=== PATIENT | female | born 1965 | race Caucasian/White ===

== ENCOUNTER 2020-06-09 10:46 | Outpatient (NON) | payer BC, SELFPAY ==
[2020-06-10 18:06] LABS: SARS-CoV-2 RNA PCR Negative
== END 2020-06-09 10:47 ==
PROVIDERS: PCP Family Medicine; Visit Provider Nurse Practitioner Family
DX: R68.83 Chills (without fever) (principal); Z20.828 Contact with and (suspected) exposure to other viral communicable diseases
CPT/HCPCS: 87635; C9803; U0003

== ENCOUNTER 2022-07-06 10:23 | Outpatient (CLI) | payer BC, SELFPAY ==
--- NOTE | ~2022-07-06 | DEXA_ITS ---
Bone Density Report Name: JOHAN SANTIAGO Age: 57 Sex: Female Ethnicity: White Date of : 1965 Indication: postmenopausal; screening for osteoporosis; height loss; prior fracture; asthma or emphysema; rheumatoid arthritis; Referring Provider: NIKKI, ANANTH Study: Bone densitometry was performed. Exam Date: July 06, 2022 Accession number: [id number] Bone Density: Region BMD T-score Z-score Classification AP Spine (L1-L4) 1.181 1.2 2.3 Normal Femoral Neck (Left) 0.898 0.4 1.5 Normal Total Hip (Left) 1.144 1.7 2.3 Normal Femoral Neck (Right) 0.877 0.3 1.3 Normal Total Hip (Right) 1.178 1.9 2.6 Normal Total Hip Mean 1.161 1.8 2.5 Normal World Health Organization criteria for BMD impression classify patients as: Normal (T-score at or above -1.0), Osteopenia (T-score between -1.0 and -2.5), or Osteoporosis (T-score at or below -2.5). 10-year Fracture Risk: FRAX not reported because: All T-scores for Spine Total, Hip Total, Femoral Neck at or above -1.0 Clinical Information Provided by Patient: Has had a low trauma fracture Has rheumatoid arthritis Has used the following medications: Vitamin D, Calcium Has the following medical conditions: Asthma or Emphysema Patient maximum height was 67 Menopause Age: 55 No regular weight bearing exercise Drinks caffeinated beverages Onset of menses at age 18 Number of children 0 Impression: The patient has normal bone mass. The patient has risk factors, including: previous fracture. Discussion: BONE DENSITY IS ABOVE THE MINIMUM DESIRABLE LEVEL AT ALL SKELETAL SITES TESTED. This patient?s bone mineral density is above the minimum desirable level (T-score -1.0 or better) at all sites measured. The patient should follow a healthful lifestyle (good nutrition with adequate calcium and vitamin D, and appropriate weight-bearing exercise). Follow-Up: Consider repeating this study in 5 years or sooner if there is some new clinical indication. Reported by: TRINH on 07/06/2022 10:41:00 AM. Reviewed, dictated and finalized at location ASharri STEIN
--- NOTE | ~2022-07-06 | MM_ITS ---
EXAMINATION: MM screening daniel BI w shoaib HISTORY: Screening mammogram TECHNIQUE: Craniocaudal and mediolateral oblique 3-D tomosynthesis images were obtained and synthetic 2-D images were generated. CAD analysis was submitted and interpreted. COMPARISON: 03/21/2019 bilateral screening mammogram 03/08/2016 bilateral diagnostic mammogram and limited right breast ultrasound 11/14/2012 screening mammogram BREAST PARENCHYMAL COMPOSITION: There are scattered areas of fibroglandular density. FINDINGS: Stable mild fibroglandular asymmetry. There is no evidence of suspicious mass, calcificatio n, or architectural distortion to suggest malignancy in either breast. There has been no suspicious i nterval change. IMPRESSION: 1. No mammographic evidence of malignancy. 2. Recommend routine screening mammography in one year. BI-RADS Category 1: Negative Reviewed, dictated and finalized at location A. 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
== END 2022-07-06 10:24 ==
LOC: MICIMG 10:24
PROVIDERS: PCP Family Medicine; Visit Provider Nurse Practitioner
DX: Z12.31 Encounter for screening mammogram for malignant neoplasm of breast (principal); Z78.0 Asymptomatic menopausal state
CPT/HCPCS: 77063; 77067; 77080

== ENCOUNTER 2022-08-18 16:12 | Outpatient (CLI) | payer BC, SELFPAY ==
--- NOTE | ~2022-08-18 | MR_ITS ---
EXAMINATION: MR knee LT wo con DATE: 08/18/2022 16:50 INDICATION: Left knee mass. TECHNIQUE: Magnetic resonance imaging (MRI) of the left knee was performed without intravenous contra st. Sequences included axial PD-weighted FS FSE, coronal PD-weighted FSE and PD-weighted FS FSE, sagi ttal PD-weighted FSE, and sagittal T2-weighted FS FSE. COMPARISON: Left knee radiographs 11/19/2020 FINDINGS: Medial compartment: Medial meniscus is normal. There is shallow partial-thickness cartilage loss of tibial condyle and fe moral condyle. Lateral compartment: There is an upper surface horizontal tear of anterior horn of lateral meniscus. There is partial-thic kness cartilage loss of tibial condyle, deep posteriorly. There is shallow partial-thickness cartilag e loss of femoral condyle. Osteophytes are noted. Patellofemoral compartment: There is full-thickness cartilage loss of patellar medial facet, median ridge, and lateral facet with cortical remodeling. There is full-thickness cartilage loss of trochlea with cortical remodeling and mild subchondral edema-like marrow signal intensity. Osteophytes are noted. Ligaments and tendons: Anterior cruciate ligament is enlarged with increased signal intensity, likely mucoid degeneration. P osterior cruciate ligament is normal. There are changes of prior sprains of medial collateral ligamen t and fibular collateral ligament characterized by increased signal intensity proximately. There is m ild patellar tendinopathy. Fluid: There is a small knee joint effusion. There is a multiloculated cyst medial and posteromedial to the knee and deep to gracilis and sartorius tendons measuring 8.0 cm x 5.6 cm transverse by greater than 13.0 cm craniocaudal. There is trace fluid in a Box's cyst. IMPRESSION: 1. Severe chondrosis of patellofemoral compartment, moderate chondrosis of lateral compartment, and m ild chondrosis of medial compartment. 2. Tear of lateral meniscus. 3. Small knee joint effusion. 4. 8.0 x 5.6 x 13.0 cm multiloculated cyst medial and posteromedial to the knee, consistent with pes anserinus bursitis. Reviewed, dictated and finalized at location A. 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 Severe chondrosis of patellofemoral compartment, moderate chondrosis of late ral compartment, and mild chondrosis of medial compartment. 2. Tear of lateral meniscus. 3. Small knee joint effusion. 4. 8.0 x 5.6 x 13.0 cm multiloculated cyst medial and posteromedial to the knee , consistent with pes anserinus bursitis.
== END 2022-08-18 16:13 | disposition home or self-care (01) ==
PROVIDERS: PCP Family Medicine; Visit Provider Orthopaedic Surgery
DX: S83.282A Other tear of lateral meniscus, current injury, left knee, initial encounter (principal); X58.XXXA Exposure to other specified factors, initial encounter
CPT/HCPCS: 73721

== ENCOUNTER 2022-08-30 10:41 | Outpatient (CLI) | payer BC, SELFPAY ==
--- NOTE | ~2022-08-30 | MR_ITS ---
EXAMINATION: MR knee LT wo/w con DATE: 08/30/2022 11:47 INDICATION: Localized swelling, mass or lump at the left knee. TECHNIQUE: Magnetic resonance imaging (MRI) of the left knee and distal thigh was performed without i ntravenous contrast. Sequences included axial, sagittal and coronal T1-weighted FSE and fluid sensit angeli FSE STIR, axial T1-weighted FS FSE and axial, sagittal and coronal T1-weighted FS FSE. COMPARISON: MRI dated 08/18/2022 FINDINGS: Small to moderate-sized left knee joint effusion at the suprapatellar pouch with surrounding uniform thin smooth enhancing synovitis. Large multiloculated fluid collection with uniform thin smooth enhan cing synovitis at the periphery as well as along a few thin internal septations. The main component o f the collection measures 10.1 x 6.9 x 4.5 cm and underlies the sartorius and gracilis muscles and te ndons consistent with pes anserine bursitis. There is a long thin loculation arising posteriorly from the larger fluid collection which extends an additional 9.2 cm craniocaudally and measures 1.4 x 1.2 cm maximal transaxial dimensions along the posterior margin of the distal gracilis muscle. No more n odular enhancing soft tissue component to suggest neoplasm. There is a minimal amount of nonloculated edema extending caudally along the superficial fascia at the medial aspect of the proximal calf. No evident reactive edema immediately surrounding the fluid collection. There is also very small Box's cyst. The visualized portions of the tendons and musculature in the distal thigh and proximal calf a re otherwise unremarkable. No fracture or pathologic marrow replacing process. Again seen is severe osteoarthritis at the patell ofemoral compartment with regions of high-grade chondromalacia at the patella and trochlea, the rim w ith mild subarticular edema-like signal change and the latter with contour suggestion of some early r emodeling. Previous noted tear of the anterior margin of the lateral meniscus along with the describe d chondromalacia in the medial lateral compartments is not clearly appreciated on the current study l ikely due to the significantly larger field of view in the current study. Again seen is likely mucoid degeneration of the anterior cruciate ligament which appears thickened with mild increased signal wi th similar stalk appearance extending along the top intact appearing ligament fibers which maintain a normal course relative Blumensaat line. IMPRESSION: 1. Slight decrease in size of a now 10.1 x 6.9 x 4.5 cm multiloculated fluid collection at the medial aspect of the locations most consistent with pes anserinus bursitis. No more nodular enhancing soft tissue component to suggest neoplasm. 2. Severe patellofemoral osteoarthritis with small to moderate-sized left knee joint effusion. Reviewed, dictated and finalized at location A. R BISCUIT IMPRESSION: 1. Slight decrease in size of a now 10.1 x 6.9 x 4.5 cm multiloculated fluid co llection at the medial aspect of the locations most consistent with pes anserin us bursitis. No more nodular enhancing soft tissue component to suggest neoplas m. 2. Severe patellofemoral osteoarthritis with small to moderate-sized left knee joint effusion.
== END 2022-08-30 10:42 ==
PROVIDERS: PCP Family Medicine; Visit Provider Orthopaedic Surgery
DX: M79.89 Other specified soft tissue disorders (principal); M17.12 Unilateral primary osteoarthritis, left knee
CPT/HCPCS: 73723; A9577

== ENCOUNTER 2024-04-22 10:42 | Emergency (ER) | payer BC, SELFPAY ==
--- NOTE | 2024-04-22 10:46 | ED_ITS ---
HPI - Extremity Injury (Upper) General Chief Complaint: Extremity Problem,Nontraumatic Stated Complaint: left arm painful when lifting up Time Seen by Provider: 04/22/24 10:44 Source: patient Mode of arrival: ambulatory Limitations: no limitations History of Present Illness HPI narrative: Patient is a 58-year-old female who presents with left shoulder pain when lifting arm up. Does admit to some numbness and tingling down the arm. Reports pain is constant. Has had surgery on that shoulder. Denies any injury but does state she was lifting heavy boxes prior to pain starting. Related Data Allergies Allergy/AdvReac Type Severity Reaction Status Date / Time Penicillins Allergy Unknown Hives Verified 04/22/24 11:05 shellfish derived Allergy Unknown HIVES Verified 04/22/24 11:05 Review of Systems Review of Systems: All systems reviewed & are unremarkable except as noted in HPI and below Constitutional: Constitutional: Denies body ache(s), Denies chills, Denies fatigue, Denies fever(s), Denies headache(s), Denies malaise and Denies weakness Eyes: Eyes: Denies blurry vision, Denies irritation and Denies loss of vision ENT: Denies otalgia, Denies headache(s), Denies nasal discharge, Denies sinus pain and Denies sore throat Cardiovascular: Cardiovascular: Denies chest pain, Denies irregular heart rhythm and Denies dyspnea Respiratory: Respiratory: Denies dyspnea Gastrointestinal: Gastrointestinal: Denies abdominal pain, Denies melena, Denies hematochezia, Denies diarrhea, Denies nausea and Denies vomiting Musculoskeletal: Musculoskeletal: Denies back pain, Denies myalgias and Reports arthralgias Integumentary/Breasts: Skin/Breast: Denies pruritus and Denies rash Neurologic: Denies headache(s), Denies loss of vision and Denies weakness Psychiatric: Psychiatric: Reports no additional psychiatric complaints Endocrine: Endocrine: Denies fatigue PMFSH Past Medical History Medical History EZ positive Arthritis of left knee Asthma BMI 29.0-29.9,adult BMI 30.0-30.9,adult Cardiac murmur, unspecified Chiari malformation type I Fibromyalgia Generalized osteoarthritis of multiple sites History of arthritis Surgical History Surgical History History of arthroscopy of left knee History of knee surgery Right TKA 06/11 History of surgery on arm Dr. Barnes Family History Family History Mother Asthma Family history of heart disease in male family member before age 55 Hypertension Family history of type 2 diabetes mellitus Diabetes mellitus History of arthritis History of blood clots Father Hypertension Family history of type 2 diabetes mellitus History of arthritis Grandparent Heart disease Cancer Social History Social History Smoking status: Former smoker Tobacco type: cigarettes Second hand tobacco smoke exposure: No Alcohol intake: current Drinks per week: 1 Alcohol use details: Occasional Substance use: never Current Housing: Decline to Answer Concerned About Future Housing: Decline to Answer Difficulty Paying Gas/Electric Bills: Decline to Answer Difficulty Paying for Meds: Decline to Answer Currently Unemployed: Decline to Answer Education: Decline to Answer Difficulty w/ Childcare or Family Care: Decline to Answer Living arrangements: with family Additional living arrangements comments: Occupation/Education: occupation 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 There is no relevant family history pertinent to the presenting complaint. Exam Const: General: cooperative, healthy appearing, comfortable, no acute distress and well nourished Nutritional Appearance: well nourished Orientation/consciousness: patient oriented x3 Limitations: no limitations HENMT: Head: normal to inspection, normocephalic and atraumatic Ears: hearing grossly normal bilaterally and external ears normal Face/Nose/Sinus: Normal external nose present, normal facial exam and face symmetric Face and sinus: normal facial exam and face symmetric Mouth: Yes lip normal Eyes: General: appearance normal, both eyes and all related structures Alignment and Position: alignment normal and position normal Periorbital: periorbital findings normal Eyelids: eyelids normal Pupils: Equal, round and reactive pupils present EOM: EOMs intact bilaterally Neck: Neck: normal visual inspection, full ROM and supple Chest: Chest palpation & inspection: normal inspection of the chest Resp: Effort & Inspection: normal respiratory effort and able to speak in complete sentences Auscultation: clear to auscultation bilaterally Cardio: Rate: regular rate Rhythm: regular rhythm Heart sounds: S1 normal heart sound present and S2 normal heart sound present GI: Inspection: normal to inspection Skin: General skin exam: normal color and no rashes or lesions noted Neuro: General: patient oriented x3 and moves all extremities Cranial nerves: Yes Equal, round and reactive pupils present Speech: normal speech Gait exam (Neuro): Normal gait present Extrem: General: normal to inspection, full ROM and no edema Left upper extremity: shoulder/upper arm inspection abnormal, tenderness of the proximal humerus and of the scapula, axillary nerve sensory function normal and abnormal ROM pain with active ROM in ABduction; no swelling, no ecchymosis, no deformity and no unsual warmth and elbow/forearm normal to inspection, normal ROM and distal pulses intact; no tenderness Psych: Appearance: grossly normal and well kempt Mental Status: mental status grossly normal Speech and movement: Normal speech and movement present Affect: normal affect Attitude: cooperative Thought process: Normal thought process present Course Course Emergency Course: Patient is aware of diagnosis, understands and agrees to treatment plan. Anticipatory guidance given. Patient agrees to follow-up as directed and is aware of reasons to seek care at the emergency department. Portions of this record may have been created with voice recognition software Level of Care: Express Care Visit Vital Signs Vital signs: Reviewed MDM - Extremity Injury (Upper) MDM Narrative Medical decision making narrative: Exam findings show no acute concerns or changes; patient is non-toxic appearing and is in no distress.? Patient is appropriate for outpatient treatment and follow-up. Discharge instructions reviewed with patient, as well as provided in writing per nursing staff. The instructions also include specific and strict return/GO TO THE ER as well as f/u information. All questions have been answered, and the patient deny any further questions with discharge and discharge plan. Differential Diagnosis Differential diagnosis: Likely dislocation of shoulder and other (Shoulder sprain, muscle strain, cervical radiculopathy) Medical Records Attestation: I reviewed the patient's medical records. Discharge Plan Discharge Clinical Impression: Left shoulder strain Qualifiers: Encounter type: initial encounter Qualified Code(s): S46.912A - Strain of unspecified muscle, fascia and tendon at shoulder and upper arm level, left arm, initial encounter Patient Disposition: Home, Self-Care Condition: Stable Instructions: Shoulder Sprain (ED) Additional Instructions: Take steroids in the morning with food. Use muscle relaxers as needed. They may make you sleepy. Use lidocaine patches 12 hours on and 12 hours off. Minimize activities that aggravate the condition The RICE protocol. Follow the RICE protocol as soon as possible after your injury:. Ice should be immediately applied to keep the swelling down. It can be used for 20 to 30 minutes, three or four times daily. Do not apply ice directly to your skin. Medication: Nonsteroidal anti-inflammatory drugs (NSAIDs) such as ibuprofen and naproxen can help control pain and swelling. Because they improve function by both reducing swelling and controlling pain, they are a better option for mild sprains than narcotic pain medicines. Please schedule a follow-up visit with your personal physician for further evaluation and treatment within 1week OR If your symptoms persist, change or worsen significantly before you can contact your personal physician then please, without delay, go to the emergency department for further evaluation. Prescriptions: New prednisone 20 mg tablet 40 mg PO DAILY 5 Days Qty: 10 0RF baclofen 10 mg tablet 10 mg PO TID 5 Days Qty: 15 0RF lidocaine 5 % adhesive patch,medicated 1 patch topical DAILY Qty: 15 0RF Rx Instructions: leave on most painful area for up to 12 hrs No Action duloxetine 60 mg capsule,delayed release(DR/EC) 60 mg PO BID Qty: 180 1RF montelukast [Singulair] 10 mg tablet 10 mg PO DAILY Qty: 90 3RF losartan-hydrochlorothiazide 100-12.5 mg tablet See Rx Instructions .ROUTE .COMPLEX Qty: 90 1RF Dose Instruction: TAKE 1 TABLET BY MOUTH DAILY Rx Instructions: TAKE 1 TABLET BY MOUTH DAILY omeprazole 40 mg capsule,delayed release(DR/EC) 40 mg PO DAILY Qty: 90 1RF albuterol sulfate 90 mcg/actuation HFA aerosol inhaler 1 inh INHALATION QID PRN (Reason: Shortness Of Breath) Qty: 8.5 2RF Follow-up/Referrals: Alexey Mar MD [Primary Care Provider] - 3 Days Stand Alone Forms: Work/School Release IP Time of Disposition: 11:40
[2024-04-22 10:55] VITALS: BP 117/85; PULSE 70; RESP 16; TEMP 36.6; O2SAT 100
== END 2024-04-22 11:45 | disposition home or self-care (01) ==
PROVIDERS: Emergency Provider Nurse Practitioner Family; PCP Family Medicine
DX: S46.912A Strain of unspecified muscle, fascia and tendon at shoulder and upper arm level, left arm, initial encounter (principal); X58.XXXA Exposure to other specified factors, initial encounter; R01.1 Cardiac murmur, unspecified; M79.7 Fibromyalgia; M15.9 Polyosteoarthritis, unspecified; G93.5 Compression of brain
CPT/HCPCS: 99213; G0463

== ENCOUNTER 2024-04-30 09:07 | Outpatient (CLI) | payer BC, SELFPAY ==
--- NOTE | ~2024-04-30 | XR_ITS ---
Left Shoulder Technique: AP and scapular Y views were obtained. Clinical History: Pain Findings: No acute fracture or dislocation is seen. Humeral intramedullary alfred partially imaged. Osse ous alignment is anatomic. The glenohumeral joint is preserved. There is idov-xn-rnsjrftm AC joint de generative change. Soft tissues are unremarkable. Impression: Tstf-qr-mglmzhpg AC joint degenerative change. Humeral intramedullary alfred partially imaged. Reviewed, dictated and finalized at location M. ATOR Impression: Qtyq-qg-cwfydkhl AC joint degenerative change. Humeral intramedullary alfred partially imaged.
== END 2024-04-30 09:08 | disposition home or self-care (01) ==
LOC: MICIMG 09:08
PROVIDERS: PCP Family Medicine; Visit Provider Nurse Practitioner Adult Health
DX: R29.898 Other symptoms and signs involving the musculoskeletal system (principal); M19.012 Primary osteoarthritis, left shoulder
CPT/HCPCS: 73030

== ENCOUNTER 2024-10-28 09:47 | Outpatient (CLI) | payer OTHER, SELFPAY ==
--- NOTE | 2024-10-28 | ECG_ITS ---
Test Date: 2024-10-28 10:15:56 Measurements Intervals [place] Rate: 74 P: 36 SD: 150 QRS: -47 QRSD: 101 T: 51 QT: 413 QTc: 460 Interpretive Statements SINUS RHYTHM POSSIBLE LEFT ATRIAL ENLARGEMENT [-0.1mV P-WAVE IN V1/V2] INFERIOR MYOCARDIAL INFARCTION , OF INDETERMINATE AGE [40+ ms Q WAVE AND/OR ST/T ABNORMALITY IN II/aVF] ANTEROLATERAL MYOCARDIAL INFARCTION , OF INDETERMINATE AGE [40+ ms Q WAVE IN I/aVL/V3-V6] ABNORMAL ECG No previous ECG available for comparison Electronically Signed On 10-28-2024 15:42:24 CDT by Christian Barajas M.D.
--- OUTSIDE RECORDS SUMMARY | 2024-10-28 10:36 | XMS_ITS | Encounter Summary ---
Author Organization [facility] Address [address] [place] [address] Care Team Providers Care Coremaker Experimental Name Role Phone Darrion Zavala MD Primary Care Provider [phone] Alexey Mar MD Primary Care Provider [phone] Encounter Details Date Type Department Care Team (Late st Contact Info) Description 11/24/2021 Lab Requisition [facility] [address] [place] [address] Foreign Abel MD [address] [place] [address] Social History Tobacco Use Types Packs/Day Years Used Date Smoking Tobacco: Never Assessed Comments Unknown Sex and Gender Information Value Date Recorded Sex Assigned at Not on file Legal Sex Female 11:29 AM CDT Gender Identity Not on file Sexual Orientation Not on file documented as of this encounter Plan of Treatment Not on file documented as of this encounter Procedures Procedure Name Priority Date/Time Associated Diagnosis Comments DERMATOPATHOLOGY Routine 11/23/2021 12:0 0 AM CDT documented in this encounter Results * DERMATOPATHOLOGY (11/23/2021 12:00 AM CDT) Case Report Dermatopathology Report Case: [id number] Authorizing Provider: Foreign Abel MD Collected: 11/23/2021 12:00 AM Ordering Location: [facility] Received: 11/24/2021 01:50 PM Pathologist: Monserrat Mendez MD Specimen: Skin, left med ankle 2 5:40 PM CDT DERMATOPATHOLOGY LABORATORY Addendum 1 This lesion is not present at the sampled margin of the specimen. 2 5:40 PM CDT DERMATOPATHOLOGY LABORATORY Addendum electronically signed by Monserrat Mendez MD on 11/30/2021 at 5:40 PM Final Diagnosis Specimen A. 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 The specimen consists of a shave biopsy measuring [id number] mm. Jar 0. 2 5:40 PM CDT DERMATOPATHOLOGY LABORATORY Microscopic Description Specimen A. SKIN, left med ankle: The epidermis shows parakeratosis, full thickness disorderly maturation of keratinocytes, mitoses at different levels, and dyskeratotic cells. 2 5:40 PM CDT DERMATOPATHOLOGY LABORATORY Disclaimer An external and internal positive and negative controls are appropriate for the histochemical, immunohistochemical and immunofluorescence stain(s) in this case (if any), except where stated explicitly. The performance characteristics of the stain(s) cited in this report were developed and its performance characteristic determined by the Dermatopathology Laboratory at [facility], directed by Dr. Tanja Estrada. These tests need not be, and therefore are not, approved by the [place] Food and Drug Administration. The tests are used for clinical purposes. Billing Codes Specimen Charges Stain Charges 41554 1 2 5:40 PM CDT DERMATOPATHOLOGY LABORATORY Embedded Images 2 5:40 PM CDT DERMATOPATHOLOGY LABORATORY Pathology/Cytolog y TISSUE SPECIMEN FROM SKIN / Unknown 11/23/2021 11/24/2021 1:50 PM CDT us Foreign Abel MD LAB - PATHOLOGY/CYTOLOGY ORD ERABLES Edited Result - Final DERMATOPATHOLOGY LABORATORY [facility] - Department of Dermatology [facility] Medicine [address] [place] [address], [address] [place] [address], [facility] [phone] documented in this encounter Visit Diagnoses Not on filedocumented in this encounter Care Teams Coremaker Experimental Relationship Specialty Start Date End Date Darrion Zavala MD [address] [place] [id number] PCP - General 12/06/17 09/20/22 Alexey Mar MD [address] [place] [address] PCP - General 09/21/22 documented as of this encounter
--- OUTSIDE RECORDS SUMMARY | 2024-10-28 10:36 | XMS_ITS | Clinical Summary ---
Author Organization [facility] Address [address] [place] [address] Care Team Providers Care Coppersmith Helper Name Role Phone Unavailable Primary Care Provider Unavailabl e Social History Tobacco Use Types Packs/Day Years Used Date Smoking Tobacco: Never Assessed Comments Unknown Sex and Gender Information Value Date Recorded Sex Assigned at Not on file Legal Sex Female 8:07 PM CDT Gender Identity Not on file Sexual Orientation Not on file Plan of Treatment Health Maintenance Due Date Last Done Comments Cervical Cancer Screening Pa p Smear (Age 30 to 64) Every 3 Years 1967 Colorectal Cancer Screening Colonoscopy (10 Years) 1967 Annual Physical 1970 Hepatitis C 1985 DTaP, Tdap and Td Vaccines ( 1 - Tdap) 1986 Hepatitis B Vaccines (1 of 3 - 19+ 3-dose series) 1986 Cervical Cancer Screening Pa p with HPV Testing (Age 30 to 64) Every 5 Years 1997 Cervical Cancer Screening with HPV 1997 Mammogram Screening 2007 Pneumococcal Vaccine: 50+ Ye ars (1 of 1 - PCV) 2017 Zoster Vaccines (1 of 2) 2017 COVID-19 Vaccine (2023-2 5 season) 2024 Meningococcal B Vaccine Aged Out No l onger eligible based on patient's age to complete this topic Meningococcal Vaccine Aged Out No martín doreen eligible based on patient's age to complete this topic RSV Immunizations Under 20 Months Aged Out No longer eligible based on patient's age to complete this topic
--- OUTSIDE RECORDS SUMMARY | 2024-10-28 10:36 | XMS_ITS | Encounter Summary ---
Author Organization [facility] Address [address] [place] [address] Care Team Providers Care Relations Liaison Name Role Phone Alexey Mar MD Primary Care Provider [phone] Encounter Details Date Type Department Care Team (Late st Contact Info) Description 01/25/[address] [facility] - DermPath Lab [address] [facility] [place], [place] [address] Zoie Topete, PABerryC [address] [place] [address] Neoplasm of uncertain behavior of skin Social History Tobacco Use Types Packs/Day Years [...] Priority Date/Time Associated Diagnosis Comments DERMATOPATHOLOGY Routine 01/25/2023 3:33 AM CDT Neoplasm of uncertain behavior of skin documented in this encounter Results * DERMATOPATHOLOGY (01/25/2023 3:33 AM CDT) Case Report Dermatopathology Report Case: [id number] Authorizing Provider: Zoie Topete, Collected: 01/25/2023 03:33 AM PA-C Ordering Location: [facility] DermPath Lab Received: 01/26/2023 01:09 PM Pathologist: Teo Estrada MD Specimens: A) - Skin, left forehead B) - Skin, left thigh C) - Skin, left medial knee 2:32 PM [facility] DERMATOPATHOLOGY LABORATORY Final Diagnosis Specimen A. SKIN, left forehead: BASAL CELL CARCINOMA, NODULAR TYPE (C44.319) Specimen B. 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 SKIN, left medial knee: ACTINIC KERATOSIS, LICHENOID (L57.0) 2:32 PM [facility] DERMATOPATHOLOGY LABORATORY Clinical History A-C: Basal Cell Carcinoma 2:32 PM T DERMATOPATHOLOGY LABORATORY Gross Description Specimen A: Received is one formalin filled container labeled with the patient's name and designated left forehead. The specimen consists of a shave biopsy measuring 6x5x1 mm. Jar 0. Specimen B: Received is one formalin filled container labeled with the patient's name and designated left thigh. The specimen consists of a shave biopsy measuring 6x8x1 mm. Jar 0. Specimen C: Received is one formalin filled container labeled with the patient's name and designated left medial knee. The specimen consists of a shave biopsy measuring 5x6x1 mm. Jar 0. 2:32 PM T DERMATOPATHOLOGY LABORATORY Microscopic Description Specimen A. SKIN, left forehead: Within the dermis there are aggregates of basaloid cells with a high nuclear to cytoplasmic ratio and peripheral palisading. Specimen B. SKIN, left thigh: The epidermis shows parakeratosis, full thickness disorderly maturation of keratinocytes, mitoses at different levels, and dyskeratotic cells. Specimen C. SKIN, left medial knee: There is focal parakeratosis. The lower half of the epidermis shows disorderly maturation of keratinocytes with nuclear pleomorphism. The dermis shows a band-like, chronic inflammatory infiltrate with occasional apoptotic keratinocytes and some basal vacuolar alteration. 2:32 PM T DERMATOPATHOLOGY LABORATORY Disclaimer An external and internal positive and negative controls are appropriate for the histochemical, immunohistochemical and immunofluorescence stain(s) in this case (if any), except where stated explicitly. The performance characteristics of the stain(s) cited in this report were developed and its performance characteristic determined by the Dermatopathology Laboratory at [facility], directed by Dr. Tanja Estrada. These tests need not be, and therefore are not, approved by the [place] Food and Drug Administration. The tests are used for clinical purposes. Billing Codes Specimen Charges Stain Charges 00247 96028 61299 1 1 1 3 2:32 PM CDT DERMATOPATHOLOGY LABORATORY Embedded Images 3 2:32 PM CDT DERMATOPATHOLOGY LABORATORY Pathology/Cytology TISSUE SPECIMEN FROM SKIN / Unknown 01/25/2023 3:33 AM CDT 01/26/2023 1:09 PM CDT Miscellaneous samples (specimen) TISSUE SPECIMEN FROM SKIN / Unknown 01/25/2023 3:33 AM CDT 01/26/2023 1:09 PM CDT Miscellaneous samples (specimen) TISSUE SPECIMEN FROM SKIN / Unknown 01/25/2023 3:33 AM CDT 01/26/2023 1:09 PM CDT Zoie Topete PA-C LAB - PATHOLOGY/CYTO LOGY ORDERABLES Final Result DERMATOPATHOLOGY LABORATORY [facility] - Department of Dermatology [facility] [address] [place] [address], [address] [phone] documented in this encounter Visit Diagnoses Diagnosis Neoplasm of uncertain behavior of skin documented in this encounter Care Teams Relations Liaison Relationship Specialty Start Date End Date Alexey Mar MD [address] [place] [address] PCP - General 09/21/22 documented as of this encounter
--- OUTSIDE RECORDS SUMMARY | 2024-10-28 10:36 | XMS_ITS | Encounter Summary ---
Author Organization [facility] Address [address] [place] [address] Care Team Providers Care Manager Market Name Role Phone Darrion Zavala MD Primary Care Provider [phone] Alexey Mar MD Primary Care Provider [phone] Encounter Details Date Type Department Care Team (Late st Contact Info) Description 12/06/2017 Lab Requisition [facility] Care DermPath Lab [address] [facility], [place] [address] Foreign Abel MD [address] [place] [address] Social History Tobacco Use Types Packs/Day Years [...] Priority Date/Time Associated Diagnosis Comments DERMATOPATHOLOGY Routine 12/05/2017 12:0 0 AM CDT documented in this encounter Results * DERMATOPATHOLOGY (12/05/2017 12:00 AM CDT) Case Report Dermatopathology Report Case: [id number] Authorizing Provider: Foreign Abel MD Collected: 12/05/2017 12:00 AM Pathologist: Mervat Sterling MD Received: 12/06/2017 11:51 AM Specimens: A) - Skin, right lateral breast B) - Skin, right lateral clavicle 1:50 PM T DERMATOPATHOLOGY LABORATORY Final Diagnosis Specimen A. SKIN, right lateral breast: BASAL CELL CARCINOMA, SUPERFICIAL MULTIFOCAL AND PIGMENTED (C44.511) NOT PRESENT AT SAMPLED MARGIN Specimen B. SKIN, right lateral clavicle: BASAL CELL CARCINOMA, SUPERFICIAL MULTIFOCAL (C44.519) PRESENT AT MARGIN 1:50 PM T DERMATOPATHOLOGY LABORATORY Clinical History A-B: R/O BCC. Check margins on A. 1:50 PM T DERMATOPATHOLOGY LABORATORY Gross Description Specimen A: Received is one formalin filled container labeled with the patients name and designated right lateral breast. The specimen consists of a shave removal measuring 5a8h6sd, the margin is inked green. Jar 0. Specimen B: Received is one formalin filled container labeled with the patient's name and designated right lateral clavicle. The specimen consists of a shave biopsy measuring 1f9q8rc, the margin is inked green. Jar 0. 1:50 PM T DERMATOPATHOLOGY LABORATORY Microscopic Description Specimen A. SKIN, right lateral breast: Attached to the undersurface of the epidermis, there are small aggregates of basaloid cells with a high nuclear to cytoplasmic ratio and peripheral palisading. There is focal melanin. This lesion is not present at the sampled margin of the specimen. Specimen B. SKIN, right lateral clavicle: Attached to the undersurface of the epidermis, there are small aggregates of basaloid cells with a high nuclear to cytoplasmic ratio and peripheral palisading. The stroma of this lesion is present at the margin of the specimen. 1:50 PM T DERMATOPATHOLOGY LABORATORY Disclaimer An external and internal positive and negative controls are appropriate for the histochemical, immunohistochemical and immunofluorescence stain(s) in this case (if any), except where stated explicitly. The performance characteristics of the stain(s) cited in this report were developed and its performance characteristic determined by the Dermatopathology Laboratory at [facility]. These tests need not be, and therefore are not, approved by the [place] Food and Drug Administration. The tests are used for clinical purposes. Billing Codes Specimen Charges Stain Charges 04048 02256 1 1 8 1:50 PM CDT DERMATOPATHOLOGY LABORATORY Embedded Images 8 1:50 PM CDT DERMATOPATHOLOGY LABORATORY Pathology/Cytology TISSUE SPECIMEN FROM SKIN / Unknown 12/05/2017 12/06/2017 11:51 AM CDT Miscellaneous samples (specimen) TISSUE SPECIMEN FROM SKIN / Unknown 12/05/2017 12/06/2017 12:55 PM CDT us Foreign Abel MD LAB - PATHOLOGY/CYTOLOGY ORD ERABLES Final Result DERMATOPATHOLOGY LABORATORY [facility] - Department of Dermatology [address] [place] [address] [address] [phone] documented in this encounter Visit Diagnoses Not on filedocumented in this encounter Care Teams Manager Market Relationship Specialty Start Date End Date Darrion Zavala MD [address] [place] [address] PCP - General 12/06/17 09/20/22 Alexey Mar MD [address] [place] [address] PCP - General 09/21/22 documented as of this encounter
--- OUTSIDE RECORDS SUMMARY | 2024-10-28 10:36 | XMS_ITS | Clinical Summary ---
Author Organization [facility] [employer] Address [address] [facility] [place] [address] Care Team Providers Care Paper Twister Tender Name Role Phone Alexey Mar MD Primary Care Provider [phone] Source Comments [facility] [employer],non-owned Affiliates and Associated Physician Practices is amultiple site organization consisting of ambulatory clinics and hospital sitesin [place] and [place]. This disclosure is being madepursuant to the Care Everywhere program and may not contain all information available regarding this patient. Last updated 18.[facility] [employer] Allergies Active Allergy Reactions Criticality Noted Date Comments Allergy Urticaria Medium 08/12/2018 Penicillins Itching 09/21/2022 Skin Adhesives Rash High 09/07/2018 Social History Tobacco Use Types Packs/Day Years Used Date Smoking Tobacco: Never Assessed Comments Unknown Sex and Gender Information Value Date Recorded Sex Assigned at Not on file Legal Sex Female 11:29 AM CDT Gender Identity Not on file Sexual Orientation Not on file Last Filed Vital Signs Vital Sign Reading Time Taken Comments Blood Pressure 113/81 09/21/2022 9:48 AM CDT Pulse 76 09/21/2022 9:48 AM CDT Temperature 36.3 C (97.4 F) 09/21/2022 9:48 AM CDT Respiratory Rate 20 09/21/2022 9:48 AM CDT Oxygen Saturation 96% 09/21/2022 9:48 AM CDT Inhaled Oxygen Concentration - - Weight 78.9 kg (174 lb) 09/21/2022 9:48 AM CDT Height - - Body Mass Index - - Plan of Treatment Health Maintenance Due Date Last Done Comments COLOGUARD (AGES 45-75) - COL ON CA SCREENING 1967 COLON MONITORING 1967 COLONOSCOPY - COLON CA SCREENING 1967 CT COLONOGRAPHY - COLON CA SCREENING 1967 Colorectal Cancer Screening 1967 FIT - COLON CA SCREENING 1967 FLEX SIG - COLON CA SCREENING 1967 LIPID TESTING 1967 PAP SMEAR 1967 HIV SCREENING 1982 HEPATITIS C SCREENING 07/01/1985 DTAP/TDAP/TD VACCINES (1 - Tdap) 1986 HEPATITIS B VACCINE (1 of 3 - 19+ 3-dose series) 1986 PNEUMOCOCCAL VACCINE 50+ (1 of 1 - PCV) 2017 ZOSTER VACCINE (1 of 2) 2017 MAMMOGRAM 08/13/2020 08/13/2018 COVID-19 VACCINE (1 - 2023-2 5 season) 2024 DEPRESSION SCREENING 06/26/2024 INFLUENZA VACCINE (Season Ended) 2025 HIB VACCINE Aged Out No longer eligi ble based on patient's age to complete this topic HPV VACCINE Aged Out No longer eligi ble based on patient's age to complete this topic MENINGOCOCCAL (Group B) VACC INE SHARED DECISION-MAKING Aged Out No longer eligibl e based on patient's age to complete this topic MENINGOCOCCAL GROUPS A/C/Y/W VACCINE Aged Out No longer eligible b ased on patient's age to complete this topic Insurance [employer]M Care Teams Paper Twister Tender Relationship Specialty Start Date End Date Alexey Mar MD [address] [place] [address] PCP - General 09/21/22
== END 2024-10-28 09:48 | disposition home or self-care (01) ==
PROVIDERS: PCP Family Medicine; Visit Provider Podiatrist Foot & Ankle Surgery
DX: Z01.818 Encounter for other preprocedural examination (principal); R94.31 Abnormal electrocardiogram [ECG] [EKG]
CPT/HCPCS: 93005

== ENCOUNTER 2025-01-27 14:59 | Outpatient (CLI) | payer OTHER, SELFPAY ==
--- NOTE | ~2025-01-27 | XR_ITS ---
Lumbosacral Spine: AP and lateral views Clinical History: Pain Findings: The normal lordotic curve is maintained. The vertebral bodies and posterior elements are i ntact. The intervertebral disc spaces are preserved. The sacroiliac joints are normally outlined. Impression: No significant abnormality. Reviewed, dictated and finalized at [facility]. Impression: No significant abnormality.
--- OUTSIDE RECORDS SUMMARY | 2025-01-27 15:12 | XMS_ITS | Encounter Summary ---
Author Organization [facility] Address [address] [place] [address] Care Team Providers Care Lift Driver Name Role Phone Darrion Zavala MD Primary Care Provider [phone] Alexey Mar MD Primary Care Provider [phone] Encounter Details Date Type Department Care Team (Late st Contact Info) Description 12/06/2017 Lab Requisition [facility] Care DermPath Lab [address] [facility], [place] [address] Foreign Abel MD [address] [place] [address] Social History Tobacco Use Types [...] AM CDT) Case Report Dermatopathology Report Case: [id number] Authorizing Provider: Foreign Abel MD Collected: 12/05/2017 12:00 AM Pathologist: Mervat Sterling MD Received: 12/06/2017 11:51 AM Specimens: A) - Skin, right lateral breast B) - Skin, right lateral clavicle 1:50 PM CDT DERMATOPATHOLOGY LABORATORY Final Diagnosis Specimen A. SKIN, right lateral breast: BASAL CELL CARCINOMA, SUPERFICIAL MULTIFOCAL AND PIGMENTED (C44.511) NOT PRESENT AT SAMPLED MARGIN Specimen B. SKIN, right lateral clavicle: BASAL CELL CARCINOMA, SUPERFICIAL MULTIFOCAL (C44.519) PRESENT AT MARGIN 1:50 PM CDT DERMATOPATHOLOGY LABORATORY at 1350 CDT Clinical History A-B: R/O BCC. Check margins on A. 1:50 PM CDT DERMATOPATHOLOGY LABORATORY Gross Description Specimen A: Received is one formalin filled container labeled with the patients name and designated right lateral breast. The specimen consists of a shave removal measuring 1a2n1iz, the margin is inked green. Jar 0. Specimen B: Received is one formalin filled container labeled with the patient's name and designated right lateral clavicle. The specimen consists of a shave biopsy measuring 4f6y3rh, the margin is inked green. Jar 0. 1:50 PM CDT DERMATOPATHOLOGY LABORATORY Microscopic Description Specimen [...] the margin of the specimen. 1:50 PM CDT DERMATOPATHOLOGY LABORATORY Disclaimer An external and internal positive and negative controls are appropriate for the histochemical, immunohistochemical and immunofluorescence stain(s) in this case (if any), except where stated explicitly. The performance characteristics of the stain(s) cited in this report were developed and its performance characteristic determined by the Dermatopathology Laboratory at [facility]. These tests need not be, and therefore are not, approved by the [place] Food and Drug Administration. The tests are used for clinical purposes. Billing Codes Specimen Charges Stain Charges 15714 48646 1 1 8 1:50 PM CDT DERMATOPATHOLOGY LABORATORY Embedded Images 8 1:50 PM CDT DERMATOPATHOLOGY LABORATORY Pathology/Cytology TISSUE SPECIMEN FROM SKIN / Unknown 12/05/2017 12/06/2017 11:51 AM CDT Miscellaneous samples (specimen) TISSUE SPECIMEN FROM SKIN / Unknown 12/05/2017 12/06/2017 12:55 PM CDT us Foreign Abel MD LAB - PATHOLOGY/CYTOLOGY ORD ERABLES Final Result DERMATOPATHOLOGY LABORATORY [facility] - Department of Dermatology [address] [place] [address] [address] [phone] documented in this encounter Visit Diagnoses Not on filedocumented in this encounter Care Teams Lift Driver Relationship Specialty Start Date End Date Darrion Zavala MD [address] [place] [address] PCP - General 12/06/17 09/20/22 Alexey Mar MD [address] [place] [address] PCP - General 09/21/22 documented as of this encounter
--- OUTSIDE RECORDS SUMMARY | 2025-01-27 15:12 | XMS_ITS | Clinical Summary ---
Author Organization [facility] [employer] Address [address] [facility] [place] [address] Care Team Providers Care Creative Recruiter Name Role Phone Alexey Mar MD Primary Care Provider [phone] Source Comments [facility],non-owned Affiliates and Associated Physician Practices is amultiple site organization consisting of ambulatory clinics and hospital sitesin [place], [place], [place] and [place]. This disclosure is being madepursuant to the Care Everywhere program and may not contain all information available regarding this patient. Last updated 18.[facility] Allergies Active Allergy Reactions Criticality Noted Date [...] COLON CA SCREENING 1967 LIPID TESTING 1967 MAMMOGRAM 1967 HIV SCREENING 1982 HEPATITIS C SCREENING 07/01/1985 DTAP/TDAP/TD VACCINES (1 - Tdap) 1986 HEPATITIS B VACCINE (1 of 3 - 19+ 3-dose series) 1986 PAP SMEAR 1988 PNEUMOCOCCAL VACCINE 50+ (1 of 1 - PCV) 2017 ZOSTER VACCINE (1 of 2) 2017 COVID-19 VACCINE (1 - 2023-2 5 season) 2024 DEPRESSION SCREENING 06/26/2024 INFLUENZA VACCINE (#1) 2025 HIB VACCINE Aged Out No longer [...] age to complete this [place] [address] [place] [address] [facility] Care Teams Creative Recruiter Relationship Specialty Start Date End Date Alexey Mar MD [address] [place] [address] PCP - General 09/21/22
--- OUTSIDE RECORDS SUMMARY | 2025-01-27 15:12 | XMS_ITS | Encounter Summary ---
Author Organization [facility] Address [address] [facility] [place] [address] Care Team Providers Care Area Safety Manager Name Role Phone Alexey Mar MD Primary Care Provider [phone] Encounter Details Date Type Department Care Team (Late st Contact Info) Description 01/25/2023 Lab Requisition [facility] - DermPath Lab [address] [facility], [place] [phone] Zoie Topete, PABerryC [address] [place] [address] Neoplasm of uncertain behavior of [...] AM CDT) Case Report Dermatopathology Report Case: [id number] Authorizing Provider: Zoie Topete, Collected: 01/25/2023 03:33 AM PA-C Ordering Location: [facility] DermPath Lab Received: 01/26/2023 01:09 PM Pathologist: Teo Estrada MD Specimens: A) - Skin, left forehead B) - Skin, left thigh C) - Skin, left medial knee 2:32 PM T DERMATOPATHOLOGY LABORATORY Final Diagnosis Specimen A. SKIN, left forehead: BASAL CELL CARCINOMA, NODULAR TYPE (C44.319) Specimen B. 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 SKIN, left medial knee: ACTINIC KERATOSIS, LICHENOID (L57.0) 2:32 PM T DERMATOPATHOLOGY LABORATORY at 1432 CDT Clinical History A-C: Basal Cell Carcinoma 2:32 [...] measuring 5x6x1 mm. Jar 0. 2:32 PM CDT DERMATOPATHOLOGY LABORATORY Microscopic Description Specimen [...] characteristic determined by the Dermatopathology Laboratory at [facility], directed by Dr. Tanja Estrada. These tests need not be, and therefore are not, approved by the [place] Food and Drug Administration. The tests are used for clinical purposes. Billing Codes Specimen Charges Stain Charges 56031 94364 36502 1 1 1 3 2:32 PM CDT [...] PATHOLOGY/CYTO LOGY ORDERABLES Final Result DERMATOPATHOLOGY LABORATORY [facility] - Department of Dermatology [facility] Specialized Medicine [address] [place] [address], [address]rd [address] [phone] documented in this encounter Visit Diagnoses Diagnosis Neoplasm of uncertain behavior of skin documented in this encounter Care Teams Area Safety Manager Relationship Specialty Start Date End Date Alexey Mar MD [address] [place] [address] PCP - General 09/21/22 documented as of this encounter
--- OUTSIDE RECORDS SUMMARY | 2025-01-27 15:12 | XMS_ITS | Encounter Summary ---
Author Organization [facility] Address [address] [facility] [place] [address] Care Team Providers Care Learning Manager Name Role Phone Darrion Zavala MD Primary Care Provider [phone] Alexey Mar MD Primary Care Provider [phone] Encounter Details Date Type Department Care Team (Late st Contact Info) Description 11/24/2021 Lab Requisition [facility] DermPath Lab [address] [facility], [place] [address] Foreign Abel MD [address] [place] [address] Social History Tobacco Use Types [...] AM CDT) Case Report Dermatopathology Report Case: [id number] Authorizing Provider: Foreign Abel MD Collected: 11/23/2021 12:00 AM Ordering Location: [facility] DermPath Lab Received: 11/24/2021 01:50 PM Pathologist: Monserrat Mendez MD Specimen: Skin, left med ankle 2 5:40 PM CDT DERMATOPATHOLOGY LABORATORY Addendum 1 This lesion is not present at the sampled margin of the specimen. 2 5:40 PM CDT DERMATOPATHOLOGY LABORATORY Addendum electronically signed by Monserrat Mendez MD on 11/30/2021 at 1740 CDT Final Diagnosis Specimen A. SKIN, left med ankle: SQUAMOUS CELL CARCINOMA IN SITU (FELDER'S DISEASE) (D04.72) 2 5:40 PM CDT DERMATOPATHOLOGY LABORATORY at 1440 CDT Clinical History R/O SCC, BCC 5:40 PM CDT DERMATOPATHOLOGY LABORATORY Gross Description Specimen A: Received is one formalin filled container labeled with the patient's name and designated left med ankle. The specimen consists of a shave biopsy measuring 40y64c1 mm. Jar 0. 2 5:40 PM CDT [...] characteristic determined by the Dermatopathology Laboratory at [facility], directed by Dr. Tanja Estrada. These tests need not be, and therefore are not, approved by the [place] Food and Drug Administration. The tests are used for clinical purposes. Billing Codes Specimen Charges Stain Charges 43953 1 2 5:40 PM CDT DERMATOPATHOLOGY LABORATORY Embedded Images 2 5:40 PM CDT DERMATOPATHOLOGY LABORATORY Pathology/Cytolog y TISSUE SPECIMEN FROM SKIN / Unknown 11/23/2021 11/24/2021 1:50 PM CDT us Foreign Abel MD LAB - PATHOLOGY/CYTOLOGY ORD ERABLES Edited Result - Final DERMATOPATHOLOGY LABORATORY [facility] - Department of Dermatology [facility] Medicine [address] [place] [address], [address] [place] [address], [facility] [phone] documented in this encounter Visit Diagnoses Not on filedocumented in this encounter Care Teams Learning Manager Relationship Specialty Start Date End Date Darrion Zavala MD [address] [place] [address] PCP - General 12/06/17 09/20/22 Alexey Mar MD [address] [place] [address] PCP - General 09/21/22 documented as of this encounter
--- OUTSIDE RECORDS SUMMARY | 2025-01-27 15:12 | XMS_ITS | Clinical Summary ---
Author Organization [facility] Address [address] [place] [address] Care Team Providers Care Facer Operator Name Role Phone Unavailable Primary Care Provider [...]
== END 2025-01-27 15:00 | disposition home or self-care (01) ==
LOC: ANHIMG 15:03
PROVIDERS: PCP Family Medicine
DX: M54.50 Low back pain, unspecified (principal)
CPT/HCPCS: 72100